=== PATIENT | male | born 1935 | race Caucasian/White ===

== ENCOUNTER → 2016-08-17 | Outpatient (CLI) | payer MEDICARE ==
[~2016-08-17] MED LIST: ASPI81TA16 PO; CARV12.53 PO; CEPH500C PO; CLOP75TA PO; DIOVAN; LIPITOR; NAPR220C11 PO; OMEP20TA2 PO; OMG1KC PO; PROP-33 PO
--- NOTE | 2016-08-20 10:46 | ECHOCARDIOGRAPHY REPORT ---
PROCEDURE PHYSICIAN: YASMANI SETH DATE OF PROCEDURE: 08/17/2016 TWO DIMENSIONAL ECHOCARDIOGRAM REPORT PRIMARY PHYSICIAN: OTHER PHYSICIAN: REFERRING PHYSICIAN: Dr. Guillermo ORDERING PHYSICIAN: INDICATION FOR THE PROCEDURE: 1. Coronary artery disease. 2. Hypertension. MEASUREMENTS DERIVED VALUES LV DIAMETER (LAX) NORMALS NORMALS Diastolic 5 (3.6-5.2) Eject. Fract. 60% (60%+/-6%) Systolic (2.3-3.9) Diastolic Vol. % Shortening (0.22-0.42) Systolic Vol. Aortic Root IVS THICKNESS Diastolic 1.4 (0.6-1.1) LVPW THICKNESS Diastolic 1.4 (0.6-1.1) LA DIAMETER Systolic 5.5 (2.1-3.7) FINDINGS: 1. Technically difficult study. 2. The left ventricle is normal in size with moderate to severe left ventricular hypertrophy noted diffusely. Systolic function appeared to be normal. Estimated ejection fraction 60%. Diastolic dysfunction is suggested by Doppler. 3. The left atrium is dilated. No clot or thrombus were seen within the left atrium. 4. The right atrium and right ventricle are prominent. No clot or thrombus were seen within the right side. 5. Mitral valve is calcified with mild mitral regurgitation noted by color Doppler flow. Doppler across the mitral valve showed equalization of E and A, which is suggestive diastolic dysfunction. 6. Aortic valve leaflets were not well visualized. No significant aortic valve stenosis or regurgitation was seen. 7. Tricuspid valve is normal in morphology with mild tricuspid regurgitation noted by color Doppler flow. Doppler across tricuspid valve estimated pulmonary artery pressure of 31+ right atrial pressure. 8. Pulmonic valve is functioning normally. 9. No pericardial effusion. IN CONCLUSION: 1. Moderate to severe left ventricular hypertrophy noted diffusely. Systolic function appeared to be normal. Estimated ejection fraction 60%. Diastolic dysfunction is suggested by Doppler. 2. Left atrial dilatation. 3. Mild mitral and tricuspid regurgitation. 4. Estimated pulmonary artery pressure of 40 mmHg. Job ID: [id number] Dictated Date: 08/20/2016 07:59:55 [employer] Crew Boss Date: 08/20/2016 10:43:39 / tbk
== END ==
LOC: CARD 08:33
PROVIDERS: ATTEND Physician Assistant
DX: I25.10 Atherosclerotic heart disease of native coronary artery without angina pectoris (principal); I65.23 Occlusion and stenosis of bilateral carotid arteries; I10 Essential (primary) hypertension; E78.2 Mixed hyperlipidemia
CPT/HCPCS: 93306

== ENCOUNTER → 2016-08-20 | Outpatient (CLI) | payer MEDICARE ==
[~2016-08-20] MED LIST changes: +CATHETER FLUSH 10 ML SYR IV PRN; +REGADENOSON 0.4 MG/5 ML SYR (LEXISCAN) IV ONE
[2016-08-20 09:32] VITALS: BP 144/100
--- NOTE | 2016-08-20 12:25 | STRESS TEST ---
PROCEDURE PHYSICIAN: YASMANI SETH DATE OF PROCEDURE: 08/20/2016 LEXISCAN MYOVIEW STRESS TEST REPORT: REFERRING PHYSICIAN: Dr. Guillermo. INDICATION: Coronary artery disease. BASELINE HEART RATE: 56 BASELINE BLOOD PRESSURE: 144/100 BASELINE EKG: Sinus rhythm with frequent PVCs, ventricular bigeminy. IN SUMMARY: The patient was injected with 9.68 mCi of technetium 99 Myoview and the resting images were obtained. Then the patient received 0.4 mg of Lexiscan followed by 29.9 mCi of technetium 99 Myoview. Throughout the test the patient continued to have frequent PVCs. No ischemic changes. The resting and stress images were reviewed and compared in the short axis, horizontal long axis, and vertical long axis views. Review of the images showed good radiotracer uptake with no ischemia or infarction on SPECT images. SSS is 0. TID value 0.8. On the gated images, the left ventricle appeared to be normal size with normal contractility. Calculated ejection fraction 65%. IN CONCLUSION: 1. The patient tolerated Lexiscan well. 2. Baseline frequent PVCs and ventricular bigeminy noted throughout test. 3. No significant ischemia or infarction on SPECT images. 4. Normal left ventricular size with normal contractility. Calculated ejection fraction 65%. Job ID: [id number] Dictated Date: 08/20/2016 12:00:28 Certified Flight Instructor Date: 08/20/2016 12:23:05 / deanne
== END ==
LOC: CARD 08:44
PROVIDERS: ATTEND Physician Assistant
DX: I25.10 Atherosclerotic heart disease of native coronary artery without angina pectoris (principal); I65.23 Occlusion and stenosis of bilateral carotid arteries; I10 Essential (primary) hypertension; E78.2 Mixed hyperlipidemia
CPT/HCPCS: 78452; 93017

== ENCOUNTER → 2017-03-21 | Outpatient (CLI) | payer MEDICARE ==
[~2017-03-21] MED LIST changes: -CATHETER FLUSH 10 ML SYR IV PRN; -REGADENOSON 0.4 MG/5 ML SYR (LEXISCAN) IV ONE
--- NOTE | 2017-03-21 19:29 | Diagnostic Imaging Report ---
Three views of the right hand. INDICATION: Right hand swelling and pain around the thumb. FINDINGS: There is soft tissue swelling appreciated, particularly around the thumb and index finger and in the thenar area. No air density is seen. No fracture or dislocation is seen. Degenerative changes at the DIP joints and at the carpometacarpal joint at the base of the thumb are seen. IMPRESSION: Soft tissue swelling. Degenerative changes. Dictated by: Dictated on workstation # [id number]
== END ==
LOC: RAD 15:35
PROVIDERS: ATTEND Internal Medicine
DX: M19.041 Primary osteoarthritis, right hand (principal)
CPT/HCPCS: 73130

== ENCOUNTER → 2018-05-14 | Outpatient (CLI) | payer MEDICARE | LOC: CARD 10:45 | PROVIDERS: ATTEND Internal Medicine Cardiovascular Disease | DX: I25.10 Atherosclerotic heart disease of native coronary artery without angina pectoris (principal); I11.9 Hypertensive heart disease without heart failure; E78.5 Hyperlipidemia, unspecified; I27.20 Pulmonary hypertension, unspecified; I08.1 Rheumatic disorders of both mitral and tricuspid valves | CPT/HCPCS: 93306 ==

== ENCOUNTER 2018-06-13 13:00 | Outpatient (CLI) | payer MEDICARE ==
[~2018-06-13] VITALS: Ht 167.6 cm; Wt 74.8 kg
[2018-06-13] MEDS ORDERED: LOSA50TA7 PO (15:41)
[2018-06-13] MEDS ORDERED: ATOR40TA70 PO (15:41)
[2018-06-13] MEDS ORDERED: RT-ALBUINH INH (15:41)
[2018-06-13] MEDS ORDERED: RANI150T90 PO (15:41)
[2018-06-13] MEDS ORDERED: CARV12.53 PO (15:41)
== END 2018-06-13 15:42 | disposition home or self-care (01) ==
LOC: PREOP 13:00
PROVIDERS: ATTEND Surgery
DX: Z01.818 Encounter for other preprocedural examination (principal)

== ENCOUNTER 2018-06-16 10:50 | Day surgery (SDC) | payer MEDICARE ==
[~2018-06-16] VITALS: Ht 167.6 cm; Wt 74.8 kg
[~2018-06-16 10:50] MED LIST changes: +ATOR40TA70 PO; +LOSA50TA7 PO; +RANI150T90 PO; +RT-ALBUINH INH
[2018-06-16] MEDS ORDERED: NS IV 500 ML 500 ML IV PRN (10:57)
[2018-06-16] MEDS ORDERED: fentaNYL INJECTION 100 MCG/2 ML AMP IVP ONE (11:00)
[2018-06-16] MEDS ORDERED: MIDAZOLAM 2 MG/2 ML (VERSED) VIAL IVP ONE (11:00)
--- NOTE | 2018-06-16 11:02 | History & Physicial ---
History of Present Illness History of Present Illness Reason for visit/HPI to undergo surveillance colonoscopy. Personal history of adenomatous polyps in 2010 Date of Admission 06/16/18 Date Seen by a Provider: Jun 16, 2018 Time Seen by a Provider: 11:00 I consulted on this patient on 06/16/18 11:00 Attending Physician Marilu Calix MD Admitting Physician Adrian Guillermo MD Consult Allergies and Home Medications Allergies Coded Allergies: No Known Drug Allergies (Verified , 03/03/08) Home Medications Albuterol Sulfate 1 Puff Puff, 2 PUFF INH Q4H PRN for WHEEZING, (Reported) 1 PUFF = 90 MCG Atorvastatin Calcium 40 Mg Tablet, 40 MG PO HS, (Reported) Carvedilol 12.5 Mg Tablet, 12.5 MG PO BID, (Reported) Losartan Potassium 50 Mg Tablet, 50 MG PO DAILY, (Reported) Ranitidine HCl 150 Mg Tablet, 150 MG PO BID, (Reported) Patient Home Medication List Home Medication List Reviewed: Yes Past Wzftvhh-Xqukrl-Jyiolr Hx Patient Social History Marrital Status: Employed/Student: retired Recent Foreign Travel: No Contact w/other who traveled: No Recent Hopitalizations: No Immunizations Up To Date Tetanus Booster (TDap): Unknown Date of Pneumonia Vaccine: May 17, 2009 Date of Influenza Vaccine: May 10, 2018 Seasonal Allergies Seasonal Allergies: No Surgeries Yes CABG, Prostatectomy Respiratory No Cardiovascular Yes Hypertension Neurological No Genitourinary Yes Prostate Problems Gastrointestinal Yes Gastroesophageal Reflux, Polyps Musculoskeletal No HEENT History of HEENT Disorders: No Cancer Yes Prostate Type of Treatment: Surgical Intervention Blood Transfusions Adverse Reaction to a Blood Tr: No Review of Systems Constitutional: no symptoms reported EENTM: no symptoms reported Cardiovascular: no symptoms reported Gastrointestinal: no symptoms reported Genitourinary: no symptoms reported Musculoskeletal: no symptoms reported Skin: no symptoms reported Psychiatric/Neurological: No Symptoms Reported Physical Exam Vital Signs Capillary Refill : Height, Weight, BMI Height: 5'6.00" Weight: 165lbs. 0.0oz. 74.318770ht; 26.6 BMI Method:Stated General Appearance: No Apparent Distress Neck: Normal Inspection Respiratory: Lungs Clear Cardiovascular: Regular Rate, Rhythm Gastrointestinal: Non Tender, Soft Rectal: Deferred Extremity: Normal Inspection Neurologic/Psychiatric: Alert, Oriented x3 Skin: Warm/Dry Assessment/Plan Assessment and Plan gentleman with a personal history of polyps. For surveillance colonoscopy Admission Diagnosis Admission Status: Other (Outpt Proc) MARILU CALIX MD Jun 16, 2018 11:02
--- NOTE | 2018-06-16 11:02 | Conscious Sedation/ASA ---
Conscious Sedation Pre-Proced Time 11:02 ASA Score 2 For ASA 3 and 4: Consider anesthesia and medical clearance. Also, for patients with a history of failed moderate sedation consider anesthesia. Airway Lungs Heart ASA score ASA 1: a normal healthy patient ASA 2: a patient with a mild systemic disease (mid diabetes, controlled hypertension, obesity ASA 3: a patient with a severe systemic disease that limits activity (angina , COPD, prior Myocardial infarction) ASA 4: a patient with an incapacitating disease that is a constant threat to life (CHF, renal failure) ASA 5: a moribund patient not expected to survive 24 hrs. (ruptured aneurysm) ASA 6: a declared brain patient whose organs are being harvested. For emergent operations, add the letter E after the classification Mallampati Classification Grade 1 Sedation Plan Discussed options with patient/fam The patient is an appropriate candidate to undergo the planned procedure, sedation, and anesthesia. The patient immediately re-assessed prior to indication. MARILU CALIX MD Jun 16, 2018 11:02
[2018-06-16 11:37] VITALS: BP 144/92
[2018-06-16] MEDS ORDERED: fentaNYL INJECTION 100 MCG/2 ML AMP ONE (11:56)
[2018-06-16] MEDS ORDERED: MIDAZOLAM 2 MG/2 ML (VERSED) VIAL ONE ×4 (11:56→13:14)
--- NOTE | 2018-06-16 13:47 | Endo Procedure Record ---
Endo Procedure Report Date of Procedure Last Colonoscopy: Yes Jun 16, 2018 Surgeon (s) MARILU CALIX MD Post Procedure/Op Diagnosis severe sigmoid diverticulosis Procedure Performed colonoscopy to cecum Description of Procedure Anesthesia Type: Conscious Sedation Specimen(s) collected/removed None Description of the Procedure Indication for the procedure: This gentleman came in for surveillance colonoscopy. Informed consent was obtained after reviewing the procedure in detail. Description of the procedure: He was placed in left lateral decubitus position and his vital signs were monitored. Conscious sedation was achieved using Versed and fentanyl. Digital examination was unremarkable. The colonoscope was then introduced in the rectum and advanced all the way up to the cecum. It was then withdrawn slowly and the mucosa examined in a systematic fashion. Findings: Quite extensive sigmoid diverticulosis. No recurrent polyps were found. He tolerated the procedure well and was taken back to the nursing area in a stable condition. Impression: Surveillance colonoscopy. No recurrent polyps. Copy Copies To 1: ANAMARIA PIERCE MD, XAVIER M MD Jun 16, 2018 13:47
--- NOTE | 2018-06-16 13:48 | Discharge Inst-Simple/Standard ---
Discharge Inst-Standard Discharge Medications New, Converted or Re-Newed RX: Other Patient Instructions/Follow Up Plan of Care/Instructions/FU: follow-up with his primary as scheduled. Activity as Tolerated: Yes Discharge Diet: No Restrictions MARILU CALIX MD Jun 16, 2018 13:48
[2018-06-16 14:00] VITALS: BP 118/58
[2018-06-16 14:30] VITALS: BP 127/78
[2018-06-16 14:45] VITALS: BP 127/78
== END 2018-06-16 14:45 | disposition home or self-care (01) ==
LOC: ENDO 10:50
PROVIDERS: ATTEND Surgery
DX: Z12.11 Encounter for screening for malignant neoplasm of colon (principal); K57.30 Diverticulosis of large intestine without perforation or abscess without bleeding; Z86.010 Personal history of colon polyps; I10 Essential (primary) hypertension; Z95.1 Presence of aortocoronary bypass graft; K21.9 Gastro-esophageal reflux disease without esophagitis; Z85.46 Personal history of malignant neoplasm of prostate

== ENCOUNTER 2018-08-11 13:37 | Outpatient (RCR) | payer MEDICARE ==
[~2018-08-11 13:37] MED LIST changes: +LOSA50TA63 PO; -LOSA50TA7 PO
== END 2018-08-11 16:41 | disposition home or self-care (01) ==
PROVIDERS: ATTEND Nurse Practitioner
DX: M35.3 Polymyalgia rheumatica (principal)

== ENCOUNTER → 2019-06-15 | Outpatient (CLI) | payer MEDICARE ==
--- NOTE | 2019-06-15 10:16 | Diagnostic Imaging Report ---
INDICATION: Chronic right hip pain. COMPARISON: None. FINDINGS: AP view of the pelvis and two dedicated radiographic views of each hip were obtained. There is no fracture, dislocation, bone destruction, or radiopaque foreign body. The visualized pelvic osseous structures and the SI joints demonstrate no acute fracture or dislocation. There is no bone destruction or radiopaque foreign body. The surrounding soft tissue structures are unremarkable. IMPRESSION: 1. Unremarkable radiographic exam of the pelvis and bilateral hips. Dictated by: Dictated on workstation # [id number]
== END ==
LOC: RAD 09:46
PROVIDERS: ATTEND Internal Medicine
DX: M25.551 Pain in right hip (principal)
CPT/HCPCS: 73523

== ENCOUNTER → 2019-07-08 | Outpatient (CLI) | payer MEDICARE ==
[~2019-07-08] VITALS: Ht 165 cm; Wt 71.0 kg
[~2019-07-08] MED LIST changes: +CATHETER FLUSH 10 ML SYR IV PRN; +REGADENOSON 0.4 MG/5 ML SYR (LEXISCAN) IV ONE
[2019-07-08 13:11] VITALS: BP 179/90
[2019-07-08 13:15] VITALS: BP 181/117
--- NOTE | 2019-07-08 21:11 | STRESS TEST ---
DATE OF SERVICE: 07/08/2019 LEXISCAN MYOVIEW STRESS TEST REPORT REFERRING PHYSICIAN: Dr. Guillermo. Baseline heart rate is 63, baseline blood pressure 183/91. Baseline EKG is sinus rhythm with no ischemic changes. In summary, the patient was injected with 10.61 mCi of technetium-99 Myoview and the resting images were obtained. Then, the patient received 0.4 mg of Lexiscan followed by 30.9 mCi of technetium-99 Myoview. Throughout the test, there were no EKG changes. The resting and stress images were reviewed and compared in the short axis, horizontal long axis, and vertical long axis views. Review of the images showed good radiotracer uptake with no significant ischemia or infarction. SSS is 4. SDS is 0. TID value 1.02. On the gated images, the left ventricle appeared to be normal size with normal contractility. Calculated ejection fraction 75%. CONCLUSION: 1. The patient tolerated Lexiscan well. 2. No ischemia or infarction on SPECT images. 3. Normal left ventricular size with normal contractility. Calculated ejection fraction 75%. Job ID: [id number] DocumentID: [id number] Dictated Date: 07/08/2019 15:47:00 Surface Grinder Tender Date: 07/08/2019 21:10:02 Dictated By: YASMANI SETH MD
== END ==
LOC: CARD 11:37
PROVIDERS: ATTEND Physician Assistant
DX: I10 Essential (primary) hypertension (principal); R07.9 Chest pain, unspecified; I25.10 Atherosclerotic heart disease of native coronary artery without angina pectoris; I27.20 Pulmonary hypertension, unspecified; I65.23 Occlusion and stenosis of bilateral carotid arteries
CPT/HCPCS: 78452; 93017

== ENCOUNTER → 2019-09-14 | Outpatient (CLI) | payer MEDICARE ==
[~2019-09-14] MED LIST changes: -CATHETER FLUSH 10 ML SYR IV PRN; -REGADENOSON 0.4 MG/5 ML SYR (LEXISCAN) IV ONE
--- NOTE | 2019-09-14 10:25 | Diagnostic Imaging Report ---
EXAMINATION: Left knee radiographs, 4 views. COMPARISON: None. HISTORY: 84-year-old male, fall. Left knee pain. FINDINGS: There is a large left knee joint effusion. There is moderate to severe medial compartment joint space loss. There is potential cortical offset of the patella on the lateral view as well as possibly present on the frontal view. There is no otherwise identified potential fracture. There are vascular calcifications. There are surgical clips within the medial soft tissues. The patella is not subluxed. IMPRESSION: 1. Question of a mildly displaced patellar fracture. This may be better evaluated on dedicated CT left knee without contrast. 2. Large left knee joint effusion. 3. Moderate to severe medial compartment joint space loss. Dictated by: Dictated on workstation # [id number]
== END ==
LOC: RAD 09:36
PROVIDERS: ATTEND Nurse Practitioner
DX: M25.462 Effusion, left knee (principal); W19.XXXA Unspecified fall, initial encounter
CPT/HCPCS: 73564

== ENCOUNTER → 2020-06-17 | Outpatient (CLI) | payer MEDICARE ==
[2020-06-17 11:22] LABS: ABSOLUTE RETIC # 47 10e9/uL (24-90); BASOPHILS % (AUTO) 1 % (0-10); EOSINOPHILS # (AUTO) 0.4 10^3/uL (0.0-0.3); EOSINOPHILS % (AUTO) 8 % (0-10); HEMATOCRIT 35 % (40-54); HEMOGLOBIN 11.3 g/dL (13.3-17.7); LYMPHOCYTES # (AUTO) 1.2 10^3/uL (1.0-4.0); LYMPHOCYTES % (AUTO) 24 % (12-44); MEAN CORPUSCULAR HEMOGLOBIN 32 pg (25-34); MEAN CORPUSCULAR HGB CONC 33 g/dL (32-36); MEAN CORPUSCULAR VOLUME 98 fL (80-99); MEAN PLATELET VOLUME 10.3 fL (9.0-12.2); MONOCYTES # (AUTO) 0.6 10^3/uL (0.0-1.0); MONOCYTES % (AUTO) 11 % (0-12); NEUTROPHILS # (AUTO) 2.8 10^3/uL (1.8-7.8); NEUTROPHILS % (AUTO) 57 % (42-75); PLATELET COUNT 186 10^3/uL (130-400); RETICULOCYTE % 1.34 % (0.50-2.40)
[2020-06-17 11:59] LABS: ELLIPT/OVALOCYTES SLIGHT; EOSINOPHILS % (MANUAL) 7 %; LYMPHOCYTES % (MANUAL) 30 %; MONOCYTES % (MANUAL) 11 %; NEUTROPHILS % (MANUAL) 52 %
== END ==
LOC: LAB 10:52
PROVIDERS: ATTEND Physician Assistant
DX: D72.829 Elevated white blood cell count, unspecified (principal)
CPT/HCPCS: 36415; 82607; 82746; 83540; 83550; 85007; 85027; 85045

== ENCOUNTER 2021-06-20 09:07 | Outpatient (RCR) | payer MEDICARE, OTHER ==
[2021-06-20 08:59] LABS: ABSOLUTE RETIC # 53 10e9/uL (24-90); BASOPHILS % (AUTO) 1 % (0-10); EOSINOPHILS # (AUTO) 0.5 10^3/uL (0.0-0.3); EOSINOPHILS % (AUTO) 10 % (0-10); HEMATOCRIT 35 % (40-54); HEMOGLOBIN 11.3 g/dL (13.3-17.7); LYMPHOCYTES % (AUTO) 24 % (12-44); MEAN CORPUSCULAR HEMOGLOBIN 32 pg (25-34); MEAN CORPUSCULAR HGB CONC 33 g/dL (32-36); MEAN CORPUSCULAR VOLUME 98 fL (80-99); MEAN PLATELET VOLUME 9.9 fL (9.0-12.2); MONOCYTES # (AUTO) 0.5 10^3/uL (0.0-1.0); MONOCYTES % (AUTO) 12 % (0-12); NEUTROPHILS # (AUTO) 2.3 10^3/uL (1.8-7.8); NEUTROPHILS % (AUTO) 53 % (42-75); PLATELET COUNT 232 10^3/uL (130-400); RETICULOCYTE % 1.49 % (0.50-2.40); WHITE BLOOD COUNT 4.4 10^3/uL (4.3-11.0)
[2021-06-20 10:04] LABS: BAND NEUTROPHILS 0 %; LYMPHOCYTES % (MANUAL) 23 %; NEUTROPHILS % (MANUAL) 60 %
[2021-06-20 10:05] LABS: BASOPHILS % (MANUAL) 1 %; ELLIPT/OVALOCYTES SLIGHT; EOSINOPHILS % (MANUAL) 7 %; MONOCYTES % (MANUAL) 9 %
== END 2021-06-30 | disposition home or self-care (01) ==
LOC: LAB 09:07
PROVIDERS: ATTEND Internal Medicine
DX: D69.6 Thrombocytopenia, unspecified (principal)
CPT/HCPCS: 36415; 82274; 82607; 82746; 83540; 83550; 85007; 85027; 85045; 85055

== ENCOUNTER 2021-12-20 05:39 | Outpatient (CLI) | payer MEDICARE, OTHER ==
[~2021-12-20] VITALS: Ht 165.1 cm; Wt 65.3 kg
[2021-12-27] MEDS ORDERED: VALS160T2 PO (13:05)
[2021-12-27] MEDS ORDERED: ASPI-999 PO (13:05)
[2021-12-27] MEDS ORDERED: ATOR80TA76 PO (13:05)
[2021-12-27] MEDS ORDERED: OMG1KC PO (13:05)
[2021-12-27] MEDS ORDERED: PANT40TA52 PO (13:05)
== END 2021-12-27 13:12 | disposition home or self-care (01) ==
LOC: PREOP 05:39
PROVIDERS: ATTEND Internal Medicine
DX: Z01.818 Encounter for other preprocedural examination (principal)

== ENCOUNTER 2021-12-29 07:25 | Day surgery (SDC) | payer MEDICARE, OTHER ==
--- NOTE | 2021-12-20 08:16 | HISTORY AND PHYSICAL ---
DATE OF SERVICE: PANENDOSCOPY HISTORY AND PHYSICAL HISTORY OF PRESENT ILLNESS: The patient is an 86-year-old white male referred by Dr. Guillermo for panendoscopy for evaluation of iron deficiency anemia. He had also seen Dr. Christensen for the anemia, who recently started iron and recommended endoscopy as well. The patient had undergone colonoscopy in 2013 where he was noted to have severe diverticular disease confined to the sigmoid colon without evidence of diverticulitis and no evidence for neoplasia at that time. The patient reports he generally has no abdominal pain. Fatty foods including [place] food will cause nausea with some mild epigastric discomfort. Otherwise, he does not have indigestion and has noted no melena or bright red blood per rectum. He does think that he has lost some weight, but he is not sure the amount over the past several months. He has noticed some fatigue. Denies craving for ice or any other pica like symptoms. He only noted dark stools after initiated on iron three days ago. Prior to that, he had no melena or bright red blood per rectum. Denies any issues with constipation or diarrhea. PAST MEDICAL HISTORY: Significant for coronary artery disease. He underwent bypass surgery over 10 years ago with no subsequent reported cardiovascular problems. History of longstanding hypertension and reported stage III chronic renal disease. MEDICATIONS: Baby aspirin daily, carvedilol 12.5 mg b.i.d., pantoprazole 40 mg daily, fish oil 1200 mg b.i.d., Diovan 160 mg daily, Lipitor 80 mg daily. PAST SURGICAL HISTORY: He reports only surgery being bypass surgery. SOCIAL HISTORY: He is retired. No significant history of alcohol consumption with no past smoking history. FAMILY HISTORY: Mother of complications of stroke. She also had gastric cancer. Father had heart disease and prostate cancer. REVIEW OF SYSTEMS: CONSTITUTIONAL: Reported weight loss with no night sweats, chills or fever. GASTROINTESTINAL: As noted in the HPI. CARDIOVASCULAR: Denies chest pain, orthopnea, PND or pedal edema. PULMONARY: Denies cough, wheezing or shortness of breath. PHYSICAL EXAMINATION: GENERAL: Reveals a pleasant white male with significant pallor. VITAL SIGNS: Heart rate was 66 and regular with a blood pressure of 116/60. HEENT: Other than pallor, it was unremarkable. CHEST: Clear to auscultation. CARDIOVASCULAR: Reveals regular rate and rhythm with 1-2/6 systolic ejection murmur heard best at the second right intercostal space without evidence of pulsus, parvus or tardus. No S3 or S4 noted. ABDOMEN: Soft, supple without mass, organomegaly or tenderness. EXTREMITIES: Reveal no cyanosis, clubbing or edema. ASSESSMENT AND PLAN: For further investigation of weight loss with significant iron deficiency anemia and a family history for gastric cancer, index case being his mother, the patient is being set up for panendoscopy. Prep instructions with Colyte were given. ASSESSMENT: The patient was advised to abstain from aspirin. He was offered a procedure time for next week, but states he is going to be gone all next week so endoscopy is being set up for 12/29/2021. Electronic medical record was reviewed going over previous labs and his last colonoscopy. I thank you for the referral of this pleasant gentleman. Job ID: [id number] DocumentID: [id number] Dictated Date: 12/14/2021 16:36:22 Floor Framer Date: 12/14/2021 17:00:56 Dictated By: MANA CORTES MD MTDD
[~2021-12-29] VITALS: Ht 165.1 cm; Wt 65.3 kg
[~2021-12-29 07:25] MED LIST changes: +ASPI-999 PO; +ATOR80TA76 PO; +PANT40TA52 PO; +VALS160T2 PO
[2021-12-29] MEDS ORDERED: LACTATED RINGERS 1,000 ML IV STA (07:37)
[2021-12-29 07:45] VITALS: BP 195/87
[2021-12-29] MEDS ORDERED: HURRICAINE EXT TUBE (BENZOCAINE) XX PRN (07:45)
--- NOTE | 2021-12-29 08:35 | Pre-Op Note & Conscious Sedat ---
Pre-Operative Progress Note H&P Reviewed The H&P was reviewed, patient examined and no changes noted. Date H&P Reviewed: Dec 29, 2021 Time H&P Reviewed: 08:35 Conscious Sedation Pre-Proced ASA Score 3 For ASA 3 and 4: Consider anesthesia and medical clearance. Also, for patients with a history of failed moderate sedation consider anesthesia. Airway Lungs Heart ASA score ASA 1: a normal healthy patient ASA 2: a patient with a mild systemic disease (mid diabetes, controlled hypertension, obesity ASA 3: a patient with a severe systemic disease that limits activity (angina, COPD, prior Myocardial infarction) ASA 4: a patient with an incapacitating disease that is a constant threat to life (CHF, renal failure) ASA 5: a moribund patient not expected to survive 24 hrs. (ruptured aneurysm) ASA 6: a declared brain- patient whose organs are being harvested. For emergent operations, add the letter E after the classification Mallampati Classification Grade 2 Sedation Plan Analgesia, Amnesia, Plan communicated to team members, Discussed options with patient/fam, Discussed risks with patient/fam The patient is an appropriate candidate to undergo the planned procedure, sedation, and anesthesia. The patient immediately re-assessed prior to indication. MANA CORTES MD Dec 29, 2021 08:35
[2021-12-29] MEDS ORDERED: PROPOFOL INJECTION 50 ML IV ONE (09:16)
[2021-12-29] MEDS ORDERED: LIDOCAINE PF 2% 5 ML (XYLOCAINE) VIAL ONE (09:20)
[2021-12-29 09:50] VITALS: BP 124/58
--- NOTE | 2021-12-29 09:56 | Anesthesia-General Post-Op ---
MAC Patient Condition Mental Status/LOC: Same as Preop Cardiovascular: Satisfactory Nausea/Vomiting: Absent Respiratory: Satisfactory Pain: Controlled Complications: Absent Post Op Complications Complications None Follow Up Care/Instructions Patient Instructions None needed. Anesthesiology Discharge Order Discharge Order Patient is doing well, no complaints, stable vital signs, no apparent adverse anesthesia problems. No complications reported per nursing. BELEM ONTIVEROS CRNA Dec 29, 2021 09:56
[2021-12-29 10:00] VITALS: BP 124/58
[2021-12-29 10:28] VITALS: BP 120/62
--- NOTE | 2021-12-29 20:57 | OPERATIVE REPORT ---
DATE OF SERVICE: PANENDOSCOPY SUMMARY INDICATION FOR THE PROCEDURE: Nausea, weight loss and iron deficiency anemia. DESCRIPTION OF PROCEDURE: The patient was placed in the left lateral decubitus position. The endoscope was inserted into the oral cavity and under direct visualization, esophagus was intubated. The endoscope was passed down the esophagus through stomach and second portion of the duodenum. Careful inspection was made as the endoscope was withdrawn. FINDINGS: The posterior pharynx, epiglottis, arytenoid aperture and true and false vocal folds were unremarkable on gross inspection. Proximal and mid esophagus was unremarkable. There is a large approximately 5 cm hiatal hernia present. The Z line was proximally placed at 33 cm from the incisor orifice. Erythema is noted at the Z-line. There appears to be evidence for some old scarring, but no ulceration was noted with no significant stricturing. Several small fundal appearing polyps; otherwise, the cardia, fundus, antrum of the stomach were unremarkable. The pylorus, pyloric channel, duodenal bulb and second portion of duodenum were unremarkable as well. No evidence for blood was noted in the upper GI tract. ASSESSMENT: A large hiatal hernia was present without evidence for erosive esophagitis, but findings compatible with likely past erosive esophagitis. No definitive bleeding site identified on EGD evaluation. I advised continued proton pump inhibitor therapy. We then proceeded with colonoscopy. Prior to undergoing colonoscopy, digital rectal evaluation was performed. Prostate is not palpable. No other abnormalities were noted on digital inspection of anal canal or distal rectal vault. The colonoscope was then inserted into the rectum and under direct visualization advanced to cecum. The cecum was identified by identification of the ileocecal valve and cecal strap. Photographic documentation was obtained. Careful inspection was made as the colonoscope was withdrawn. FINDINGS: There was no evidence for internal or external hemorrhoids and the rectum was unremarkable. Moderate to severe diverticular disease confined to the sigmoid colon was present without evidence for diverticulitis. Present in the distal descending colon was a diminutive 2 to 3 mm polyp, no stigmata to suggest bleeding and no blood noted in the lower GI tract, there was a similar polyp noted in the distal ascending colon also left due to patient's age, comorbidity and need for antiplatelet therapy. The remainder of the colonoscopy was unremarkable. No evidence for vascular malformation. Again, no blood noted in the lower GI tract, either. ASSESSMENT: Moderate to severe diverticular disease confined to the sigmoid colon was present without evidence for diverticulitis. Two diminutive polyps with essentially no risk for bleeding were left as noted above. No definitive bleeding sites identified on today's panendoscopy. The patient was advised to continue current medications including recently initiated iron therapy. Job ID: [id number] DocumentID: [id number] Dictated Date: 12/29/2021 09:54:25 Industrial Yard Brake Coupler Date: 12/29/2021 20:57:08 Dictated By: MANA CORTES MD [facility]
== END 2021-12-29 10:34 | disposition home or self-care (01) ==
LOC: ENDO 07:25
PROVIDERS: ATTEND Internal Medicine
DX: D50.9 Iron deficiency anemia, unspecified (principal); K44.9 Diaphragmatic hernia without obstruction or gangrene; K57.30 Diverticulosis of large intestine without perforation or abscess without bleeding

== ENCOUNTER → 2022-03-14 | Outpatient (CLI) | payer MEDICARE, OTHER | LOC: CARD 09:00 | PROVIDERS: ATTEND Internal Medicine Cardiovascular Disease | DX: I08.3 Combined rheumatic disorders of mitral, aortic and tricuspid valves (principal); I11.9 Hypertensive heart disease without heart failure; I37.1 Nonrheumatic pulmonary valve insufficiency | CPT/HCPCS: 93306 ==

== ENCOUNTER → 2022-03-19 | Outpatient (CLI) | payer MEDICARE, OTHER ==
[~2022-03-19] VITALS: Ht 165 cm; Wt 67.0 kg
[~2022-03-19] MED LIST changes: +REGADENOSON 0.4 MG/5 ML SYR (LEXISCAN) IV ONE
[2022-03-19] MEDS: CATHETER FLUSH 10 ML SYR IVP PRN ×2 (07:48→09:45)
[2022-03-19 09:42] VITALS: BP 182/87
--- NOTE | 2022-03-19 12:08 | Cardiology Stress Test Report ---
Stress Test Report Date of Procedure/Referring: Date of Procedure: Mar 19, 2022 PCP Anamaria Pierce MD Admitting Physician Admitting Physician: Attending Physician: Joceline Irby MD Indications: HTN Baseline Heart Rate: 73 Baseline Blood Pressure: Blood Pressure Systolic: 182 Blood Pressure Diastolic: 87 Baseline Vitals Vital Signs Date Time Temp Pulse Resp B/P (MAP) Pulse Ox O2 Delivery O2 Flow Rate FiO2 03/19/22 09:42 76 16 182/87 (118) 98 Room Air Baseline EKG: Baseline EKG: NSR Summary After explaining the procedure to the patient, he signed a consent and then brought to the stress nuclear laboratory. Patient received 0.4 mg Lexiscan for stress test, ECG, heart rate and blood pressure were monitored continuously. Resting and stress dose of radio tracer were injected, imaging was acquired and reviewed in short axis, horizontal long axis and vertical long axis views. TID: 1.04 SSS: 3 SDS: 3 EF: 63 1. Patient tolerated Lexiscan well 2. Diaphragmatic attenuation with typical male pattern. No significant ischemia or infarction on SPECT images 3. Normal left ventricular size, ejection fraction 63% Copy Copies To 1: ANAMARIA PIERCE MD, BASHAR J MD Mar 19, 2022 12:08
== END ==
LOC: CARD 08:00
PROVIDERS: ATTEND Internal Medicine Cardiovascular Disease
DX: I10 Essential (primary) hypertension (principal)
CPT/HCPCS: 78452; 93017; A9502

== ENCOUNTER 2022-12-25 10:19 | Emergency (ER) | payer MEDICARE, OTHER ==
[~2022-12-25] VITALS: Ht 167 cm; Wt 65.0 kg
[~2022-12-25 10:19] MED LIST changes: -REGADENOSON 0.4 MG/5 ML SYR (LEXISCAN) IV ONE
--- NOTE | 2022-12-25 11:05 | ED Upper Extremity ---
General Chief Complaint: Upper Extremity Stated Complaint: FALL | LT SHOULDER INJ/PAIN Nursing Triage Note: fell over garden hose on saturday and injured left shoulder. Source: patient Exam Limitations: no limitations (MARY GRACE JENKINS) History of Present Illness Date Seen by Provider: Dec 25, 2022 Time Seen by Provider: 11:03 Initial Comments Patient is a 87-year-old male who presents ED for left shoulder injury. Patient fell on Saturday. Patient states he was in his shop his feet got tangled around the garden hose when he fell landing directly on his left shoulder. Denies hitting his head or loss of consciousness. Patient does take aspirin. Patient had more pain on Saturday and Saturday but he is concerned with the bruising and limited range of motion. Denies of any chest pain, cough, shortness of breath, abdominal pain, middle lower back pain, distal numbness and tingling. Patient did take Tylenol for pain. Here with family. Denies visual changes, unilateral muscle weakness or sensory changes, headache, dizziness. (MARY GRACE JENKINS) Allergies and Home Medications Allergies Coded Allergies: No Known Drug Allergies (Verified , 03/03/08) Patient Home Medication List Home Medication List Reviewed: Yes (MARY GRACE JENKINS) Aspirin (Aspirin) 81 Mg Tab.chew, 81 MG PO DAILY, (Reported) Entered as Reported by: UNA LEON on 12/27/21 1305 Atorvastatin Calcium (Atorvastatin Calcium) 80 Mg Tablet, 80 MG PO DAILY, (Reported) Entered as Reported by: UNA LEON on 12/27/21 1305 Carvedilol (Carvedilol) 12.5 Mg Tablet, 12.5 MG PO BID, (Reported) Entered as Reported by: VANNA CELAYA on 06/13/18 1541 [place] 3 Polyunsat Fatty Acids (Fish Oil 1,000 mg Capsule) 340 Mg-1,000 Mg Cap, 1,000 MG PO DAILY, (Reported) Entered as Reported by: UNA LEON on 12/27/21 1305 Pantoprazole Sodium (Pantoprazole Sodium) 40 Mg Tablet.dr, 40 MG PO DAILY, (Reported) Entered as Reported by: UNA LEON on 12/27/21 1305 Valsartan (Diovan) 160 Mg Tablet, 160 MG PO DAILY, (Reported) Entered as Reported by: UNA LEON on 12/27/21 1305 Review of Systems Constitutional: No chills, No diaphoresis, No fever, No malaise, No weakness EENTM: No ear pain, No blurred vision, No double vision Respiratory: No cough, No dyspnea on exertion Cardiovascular: No chest pain Gastrointestinal: No abdominal pain, No diarrhea, No nausea, No vomiting Genitourinary: No decreased output, No discharge Musculoskeletal: joint pain, joint swelling, muscle pain Skin: change in color (MARY GRACE JENKINS) All Other Systems Reviewed Negative Unless Noted: Yes (MARY GRACE JENKINS) Past Dbjphpv-Pwnmda-Skeaqj Hx Immunizations Up To Date Tetanus Booster (TDap): Unknown First/Initial COVID19 Vaccinat: 2020 Second COVID19 Vaccination Nigel: 2020 Third COVID19 Vaccination Date: NO (MARY GRACE JENKINS) Seasonal Allergies Seasonal Allergies: No (MARY GRACE JENKINS) Past Medical History Surgeries: Yes CABG, Prostatectomy Respiratory: No Cardiac: Yes Hypertension Neurological: No Genitourinary: Yes Prostate Problems Gastrointestinal: Yes Gastroesophageal Reflux, Polyps Musculoskeletal: No Endocrine: No HEENT: No Cancer: Yes Prostate What Type of Treatment Did You: Surgical Intervention Psychosocial: No Integumentary: No Blood Disorders: No Adverse Reaction/Blood Tranf: No (MARY GRACE JENKINS) Physical Exam Vital Signs Vital Signs - First Documented 12/25/22 10:33 Temp 36.5 Pulse 61 Resp 18 B/P (MAP) 179/99 (125) Pulse Ox 98 O2 Delivery Room Air (JOSE ALEJANDRO MEJIA MD) Vital Signs Capillary Refill : (MARY GRACE JENKINS) Height, Weight, BMI Height: 5'6.00" Weight: 165lbs. 0.0oz. [id number]; 23.00 BMI Method:Stated General Appearance: WD/WN, no apparent distress HEENT: PERRL/EOMI, normal ENT inspection, TMs normal, pharynx normal Neck: non-tender, full range of motion, supple, normal inspection Cardiovascular: regular rate, rhythm, no edema, no gallop, no JVD Respiratory: chest non-tender, lungs clear, normal breath sounds, no respiratory distress, no accessory muscle use Gastrointestinal: normal bowel sounds, non tender, soft, no organomegaly Back: normal inspection, no CVA tenderness, no vertebral tenderness Shoulder: ecchymosis (Left shoulder), limited ROM (Left shoulder), pain, soft tissue tenderness (Tenderness to palpate left clavicle, left anterior shoulder with limited passive range of motion), swelling Wrist: Yes normal inspection, Yes non-tender, Yes no evidence of injury Hand: normal inspection, non-tender, no evidence of injury, Left Skin: other (Bruising to left anterior shoulder) (MARY GRACE JENKINS) Progress/Results/Core Measures Results/Orders Vital Signs/I&O 12/25/22 12/25/22 10:33 11:57 Temp 36.5 Pulse 61 61 Resp 18 18 B/P (MAP) 179/99 (125) 179/99 Pulse Ox 98 98 O2 Delivery Room Air Room Air (JOSE ALEJANDRO MEJIA MD) Blood Pressure Mean: 125 Departure Communication (PCP) Patient with a mechanical fall. Landed on his left shoulder on Saturday. Denies hitting his head or loss of conscious. Not on blood thinners. Bruising to left anterior shoulder tenderness to left lateral shoulder and clavicle. No pain with deep inspiration. X-ray of the left shoulder shows a left mid clavicle slightly displaced fracture. Chest x-ray unremarkable. Refuse anything for pain. Results were discussed with patient. Patient was placed in a sling. Orthopedic outpatient follow-up. He states he has Tylenol at home and does not request anything stronger. Recommend keeping the arm in the sling until seen by orthopedic. GCS 15. Alert and orient x3. He has no other current complaints. No cervical, thoracic or lumbar midline tenderness. No focal neural deficits. (MARY GRACE JENKINS) Impression Primary Impression: Clavicle fracture Disposition: 01 HOME, SELF-CARE Condition: Stable Departure-Patient Inst. Decision time for Depature: 11:33 (MARY GRACE JENKINS) Referrals: ANAMARIA PIERCE MD (PCP/Family) Primary Care Physician JOSH NEFF MD Patient Instructions: Clavicle fracture Add. Discharge Instructions: Recommend following up with orthopedic for further evaluation. Sling for comfort All discharge instructions reviewed with patient and/or family. Voiced understanding. ATTENDING PHYSICIAN NOTE: I was physically present as attending physician in the emergency department during the care of this patient, but I was not directly involved in the decision making or delivery of care for this patient. (JOSE ALEJANDRO MEJIA MD) MARY GRACE JENKINS Dec 25, 2022 11:05 JOSE ALEJANDRO MEJIA MD Dec 25, 2022 20:48
--- NOTE | 2022-12-25 11:25 | Diagnostic Imaging Report ---
INDICATION: Left-sided chest pain. Frontal chest obtained at 11:13 a.m. and compared to 01/16/2013. FINDINGS: There is poststernotomy change. The heart is normal in size. There is no focal infiltrate or pneumothorax or pleural fluid. There is no overt bony abnormality in the chest. IMPRESSION: Postop changes with no acute process in the chest. Dictated by: Dictated on workstation # [id number]
--- NOTE | 2022-12-25 11:27 | Diagnostic Imaging Report ---
CLINICAL INDICATION: Patient is status post fall over a garden hose on Saturday and injured left shoulder. EXAM: X-ray of the left shoulder, 3 views. COMPARISON: None. FINDINGS AND IMPRESSION: 1: There is a slightly displaced fracture involving the mid left clavicular diaphysis. X-ray of the left clavicle would better evaluate. 2: There is no other fracture seen. 3: There are small degenerative spurs involving the left AC joint. Dictated by: Dictated on workstation # [id number]
[2022-12-25 11:57] VITALS: BP 179/99
== END 2022-12-25 11:57 | disposition home or self-care (01) ==
LOC: EDUNIT# 10:19 → ER 10:22
DX: S42.002A Fracture of unspecified part of left clavicle, initial encounter for closed fracture (principal); S40.012A Contusion of left shoulder, initial encounter; Z79.82 Long term (current) use of aspirin; W18.30XA Fall on same level, unspecified, initial encounter; Y92.513 Shop (commercial) as the place of occurrence of the external cause
CPT/HCPCS: 71045; 73030

== ENCOUNTER → 2023-05-27 | Outpatient (CLI) | payer MEDICARE, OTHER | LOC: CARD 13:12 | PROVIDERS: ATTEND Internal Medicine Cardiovascular Disease | DX: I11.9 Hypertensive heart disease without heart failure (principal); I34.0 Nonrheumatic mitral (valve) insufficiency; I35.1 Nonrheumatic aortic (valve) insufficiency; I07.1 Rheumatic tricuspid insufficiency | CPT/HCPCS: 93306 ==